=== PATIENT | female | born 1965 | race Caucasian/White ===

== ENCOUNTER 2017-04-28 19:22 | Emergency (ER) | payer OTHER ==
[2017-04-28 19:30] VITALS: BP 127/61; PULSE 78; RESP 20; TEMP 97.8
[2017-04-28] MEDS ORDERED: HYDROmorphone 2 MG/ML 1 ML SYRINGE IM STA (19:52)
--- NOTE | 2017-04-28 20:07 | ED ---
Back Pain HPI - General Chief Complaint: Back Pain/Injury Stated Complaint: Eval Lumbar Pain Time Seen by Provider: 04/28/17 19:35 Source: patient, RN notes reviewed Limitations: no limitations - History of Present Illness Initial Comments: This is a 51-year-old female who presents to the emergency department with chief complaint of mid-back pain. Patient states that she has an extensive medical history and is disabled. She states that she spends most of her time lying in bed. Patient states that she has always had chronic back pain however the pain has been worsening over the past 2 weeks. Patient states that the pain is localized to the right side of her back and it is worse with movement or reaching for objects. She states that she currently takes muscle relaxers but no pain medication. She states that today while at [employer] she twisted and felt a sharp pain in her right back that she says is worse than it has been. She returned home and asked her son to drive her to the emergency department because she couldn't handle the pain anymore. Denies lumbar back pain, saddle paresthesias or loss of bladder or bowel function. Denies fever, chills, chest pain, shortness of breath, abdominal pain, nausea or vomiting, constipation or diarrhea, dysuria or hematuria, numbness or tingling, headache or vision changes. - Related Data Home Medications Medication Instructions Recorded Confirmed Albuterol Sulfate [Ventolin HFA] 2 puff INHALATION DIRECTED PRN 04/30/1409/08 Metoprolol Tartrate [Lopressor] 25 mg PO BID 04/30/14 05/01/14 QUEtiapine FUMARATE [SEROquel] 300 mg PO HS 04/30/14 05/01/14 ALPRAZolam [Xanax] 0.5 mg PO QID PRN 05/01/14 05/01/14 Baclofen [Lioresal] 10 mg PO TID 05/01/14 05/01/14 DULoxetine HCL [Cymbalta] 30 mg PO TID 05/01/14 05/01/14 Dicyclomine [Bentyl] 10 mg PO QID PRN 05/01/14 05/01/14 Omeprazole [PriLOSEC] 40 mg PO AC-BRKFST 05/01/14 05/01/14 Ondansetron HCl [Zofran] 8 mg PO Q8HR PRN 05/01/14 05/01/14 Pregabalin [Lyrica] 100 mg PO BID 05/01/14 05/01/14 Topiramate [Topamax] 50 mg PO BID 05/01/14 05/01/14 traMADol HCL [Ultram] 50 mg PO BID PRN 05/01/14 05/01/14 Allergies Allergy/AdvReac Type Severity Reaction Status Date / Time bupropion HCl Allergy Rash/Hives Verified 04/28/17 19:30 [From Wellbutrin] cephalexin monohydrate Allergy Rash/Hives Verified 04/28/17 19:30 [From Keflex] pseudoephedrine HCl Allergy Rash/Hives Verified 04/28/17 19:30 [From Sudafed] Review of Systems ROS Statement: Those systems with pertinent positive or pertinent negative responses have been documented in the HPI. ROS Other: All systems not noted in ROS Statement are negative. Past Medical History Past Medical History: Fibromyalgia, Hyperlipidemia, Hypertension, Pneumonia, Seizure Disorder, Sleep Apnea/CPAP/BIPAP, Thyroid Disorder Additional Past Medical History / Comment(s): LAST SEIZURE "YEARS AGO", UNABLE TO WEAR CPAP MACHINE, STATES HAS CURRENT FX TAILBONE, CURRENT ALLERGIC REACTION TO CREAM ON FACE History of Any Multi-Drug Resistant Organisms: None Reported Past Surgical History: Back Surgery, Section, Cholecystectomy, Joint Replacement, Orthopedic Surgery, Tubal Ligation Additional Past Surgical History / Comment(s): SPINAL FUSION, LEFT KNEE REPLACEMENT, LEFT ANKLE ORIF WITH PINS, SX FOR DEV SEPTUM, CHIN IMPLANT Additional Past Anesthesia/Blood Transfusion Reaction / Comment(s): AFTER SPINAL FUSION HAD DIFFICULTY WAKING P Past Psychological History: Bipolar, PTSD Smoking Status: Former smoker Past Alcohol Use History: Rare Past Drug Use History: None Reported General Exam - General Exam Comments Initial Comments: General: Awake and alert, well-developed; in no apparent distress. Son is at bedside. HEENT: Head atraumatic, normocephalic. Pupils are equal, round and reactive to light. Extraocular movements intact. Oropharynx moist without erythema or exudate. Neck: Supple. Normal ROM. Back: Normal active range of motion of the thoracic spine. There is tenderness on palpation of right thoracic paraspinal muscles. No bony point vertebral tenderness. Sensation is intact. Pedal pulses are 2+ equal and palpable bilaterally. Cardiovascular: Regular rate and rhythm. No murmurs, rubs or gallops. Chest symmetrical. Respiratory: Lungs clear to auscultation bilaterally. No wheezes, rales or rhonchi. Normal respiratory effort with no use of accessory muscles. Musculoskeletal: Normal ROM, no tenderness bilateral upper and lower extremities. Ambulating normally. Skin: [place], warm and dry without rashes or lesions. Neurological: Alert and oriented x3. CN II-XII grossly intact. Speech is fluent and answers are appropriate. No focal neuro deficits. Psychiatric: Normal mood and affect. No overt signs of depression or anxiety noted. Limitations: no limitations Course Vital Signs 04/28/17 19:27 Temperature 97.8 F Pulse Rate 78 Respiratory 20 Rate Blood Pressure 127/61 O2 Sat by Pulse 97 Oximetry Medical Decision Making - Medical Decision Making This is a 51-year-old female who presents to the emergency department with chief complaint of acute on chronic back pain. Patient states that she has tenderness to the right paraspinal muscles that is positional and worsens with twisting motions and reaching. She has been experiencing progressive worsening of pain over the past 2 weeks. Denies any specific injury or trauma to the area. This case was discussed with attending physician Dr. Bhakta who recommended administering Dilaudid 2 mg IM for pain management. She is in no acute distress at this time. Patient was strongly advised to follow up with her primary care provider on Sunday morning. She is in agreement with plan and voices understanding. All questions were answered. Disposition Clinical Impression: Pain in right paraspinal region Disposition: HOME SELF-CARE Condition: Good Instructions: Lower Back Exercises (ED), Back Pain (ED) Additional Instructions: Please follow up with primary care provider within 1-2 days. Return to emergency department if symptoms should worsen or any concerns arise. Referrals: Marquise Salas MD [Primary Care Provider] - 1-2 days Time of Disposition: 20:13
== END 2017-04-28 20:47 | disposition home or self-care (01) ==
LOC: EC 19:22
DX: M54.9 Dorsalgia, unspecified (principal); G89.29 Other chronic pain; M79.7 Fibromyalgia; I10 Essential (primary) hypertension; F31.9 Bipolar disorder, unspecified; F43.10 Post-traumatic stress disorder, unspecified; G47.30 Sleep apnea, unspecified; Z98.890 Other specified postprocedural states; Z86.69 Personal history of other diseases of the nervous system and sense organs; Z87.891 Personal history of nicotine dependence; Z79.899 Other long term (current) drug therapy; Z88.8 Allergy status to other drugs, medicaments and biological substances; Z88.1 Allergy status to other antibiotic agents
CPT/HCPCS: 99283; 96372; J1170

== ENCOUNTER → 2018-03-12 | Outpatient (CLI) | payer OTHER ==
[2018-03-12 08:39] LABS: Basophils % (A) 1 %; Eosinophils # (A) 0.1 k/uL (0-0.7); Eosinophils % (A) 2 %; HCT 41.4 % (34.0-46.0); HGB 13.2 gm/dL (11.4-16.0); Hypochromasia Slight; Lymphocytes % (A) 32 %; MCH 27.9 pg (25.0-35.0); MCHC 31.9 g/dL (31.0-37.0); MCV 87.5 fL (80.0-100.0); Mean Platelet Volume 7.4; Monocytes # (A) 0.3 k/uL (0-1.0); Monocytes % (A) 5 %; Neutrophils # (A) 3.7 k/uL (1.3-7.7); Neutrophils % (A) 60 %; Platelet Count 204 k/uL (150-450); RBC 4.72 m/uL (3.80-5.40); RDW 13.7 % (11.5-15.5); WBC 6.1 k/uL (3.8-10.6)
== END | disposition home or self-care (01) ==
LOC: LABPAT 07:44
PROVIDERS: ATTEND Obstetrics & Gynecology
DX: Z01.818 Encounter for other preprocedural examination (principal); Z01.812 Encounter for preprocedural laboratory examination; I10 Essential (primary) hypertension; N92.0 Excessive and frequent menstruation with regular cycle; N94.6 Dysmenorrhea, unspecified; D64.9 Anemia, unspecified
CPT/HCPCS: 36415; 85025; 93005

== ENCOUNTER 2018-03-19 07:41 | Day surgery (SDC) | payer OTHER ==
[2018-03-13 10:33] VITALS: BMI 47.4
[~2018-03-19 07:41] MED LIST: HYDROmorphone 0.5 MG/0.5 ML SYRINGE IVP PRN; LACTATED RINGERS 1,000 ML IV SCH; LIDOCAINE 1% 20 ML VIAL (10MG/ML) FOR IV START INTRADERMA PRN; Pre Op ABX Message 1 EACH MISC MISCELLANE ONE
[2018-03-19] MEDS ORDERED: DEXAMETHASONE SOD PHOSPHATE 10 MG/ML 1 ML VIAL IV ONE (08:36)
[2018-03-19] MEDS ORDERED: ONDANSETRON 4 MG/2 ML VIAL IVP ONE (08:38)
[2018-03-19] MEDS ORDERED: MIDAZOLAM 2 MG/2 ML VIAL ONE (08:55)
[2018-03-19] MEDS ORDERED: LIDOCAINE 1% INJ 10MG/ML (20 ML MDV) ONE (08:55)
[2018-03-19] MEDS ORDERED: KETOROLAC 30 MG/ML 1 ML VIAL ONE (08:55)
[2018-03-19] MEDS ORDERED: SUCCINYLCHOLINE CHLORIDE VIAL 200 MG/10 ML VIAL IV ONE (08:55)
[2018-03-19] MEDS ORDERED: fentaNYL (PF) 50 MCG/ML 2 ML AMP ONE (08:55)
[2018-03-19] MEDS ORDERED: PROPOFOL 10 MG/ML 20 ML VIAL IV ONE (08:55)
--- NOTE | 2018-03-19 09:22 | P.OP ---
Date of Procedure: 03/19/18 Preoperative Diagnosis: Menorrhagia, dysmenorrhea, anemia, morbid obesity Postoperative Diagnosis: Same Procedure(s) Performed: Hysteroscopy, NovaSure endometrial ablation Anesthesia: DAVID Surgeon: Ro Meraz Estimated Blood Loss (ml): 5 IV fluids (ml): 500 Urine output (ml): 75 Pathology: none sent Condition: stable Disposition: PACU Description of Procedure: Patient is brought to the operating suite where a general anesthetic is administered without difficulty. She's placed in the dorsal lithotomy position. The appropriate timeout is performed to assure proper patient and procedural identification. Urine hCG is negative. Cervix vagina and perineal bodies are all prepped and draped in usual sterile fashion. The bladder is drained for approximately 75 mL of clear yellow urine. Weighted speculum was placed into the vagina and the anterior lip of the cervix is grasped with an Allis clamp. Uterus sounds to a depth of 10.5 cm in the anteverted position. The cervix is gently and systematically dilated using Hanks dilators. Hysteroscope was placed and the cavity is distended with sterile saline. Inspection of the cavity reveals a fair amount of proliferative appearing tissue, no obvious polyps fibroids or defects. Hysteroscope was removed. The NovaSure wand is then placed and seated properly. Uterine length of 6.5 cm, width of 4.1 cm is calibrated. Machine is properly enabled. For 46 seconds and a power of 147 W the procedure is carried out. When it is completed the wand is reduced and removed. Hysteroscope was once again placed and the cavity is noted to be uniformly blanched. All sponge needle and enhancement counts are correct at the end of this procedure. Patient is given Toradol prior to leaving the operative suite. Vital signs are stable including a blood pressure 113/41, pulse 75, 98% O2 saturation. Patient will follow-up with me in the office in 2 weeks.
[2018-03-19 09:36] VITALS: TEMP 97.7
[2018-03-19] MEDS ORDERED: LACTATED RINGERS 1,000 ML IV ONE (10:13)
[2018-03-19 10:23] VITALS: RESP 16
[2018-03-19] MEDS ORDERED: IBUPROFEN 200 MG TAB PO ONE (10:45)
[2018-03-19 11:47] VITALS: BP 94/62; PULSE 73
== END 2018-03-19 12:09 | disposition home or self-care (01) ==
LOC: OR 07:41
PROVIDERS: ATTEND Obstetrics & Gynecology
DX: N92.0 Excessive and frequent menstruation with regular cycle (principal); N94.6 Dysmenorrhea, unspecified; D64.9 Anemia, unspecified; I10 Essential (primary) hypertension; E78.5 Hyperlipidemia, unspecified; J44.9 Chronic obstructive pulmonary disease, unspecified; G47.33 Obstructive sleep apnea (adult) (pediatric); Z87.891 Personal history of nicotine dependence; M79.7 Fibromyalgia; F39 Unspecified mood [affective] disorder; R56.9 Unspecified convulsions; K58.9 Irritable bowel syndrome, unspecified; K21.9 Gastro-esophageal reflux disease without esophagitis; E66.01 Morbid (severe) obesity due to excess calories; Z68.42 Body mass index [BMI] 45.0-49.9, adult; Z79.890 Hormone replacement therapy; Z79.51 Long term (current) use of inhaled steroids; Z79.899 Other long term (current) drug therapy; Z88.1 Allergy status to other antibiotic agents; Z88.8 Allergy status to other drugs, medicaments and biological substances
CPT/HCPCS: 58563; 81025; J2250; J0330; J1100; J2405; J2001; J3010; J1885; J2704

== ENCOUNTER → 2019-02-19 | Outpatient (CLI) | payer OTHER ==
[2019-02-19 11:41] VITALS: BP 139/78; PULSE 88; RESP 16
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
== END | disposition home or self-care (01) ==
LOC: PNWHC3 11:29
PROVIDERS: ATTEND Anesthesiology
DX: G89.4 Chronic pain syndrome (principal); M51.36 Other intervertebral disc degeneration, lumbar region; M79.7 Fibromyalgia; M47.816 Spondylosis without myelopathy or radiculopathy, lumbar region; Z87.891 Personal history of nicotine dependence; Z79.899 Other long term (current) drug therapy; Z79.891 Long term (current) use of opiate analgesic; Z79.52 Long term (current) use of systemic steroids
CPT/HCPCS: 99211

== ENCOUNTER 2019-03-10 07:01 | Day surgery (SDC) | payer OTHER ==
[2019-03-05 17:48] VITALS: BMI 62.2
[~2019-03-10 07:01] MED LIST changes: -HYDROmorphone 0.5 MG/0.5 ML SYRINGE IVP PRN; -LIDOCAINE 1% 20 ML VIAL (10MG/ML) FOR IV START INTRADERMA PRN; -Pre Op ABX Message 1 EACH MISC MISCELLANE ONE
[2019-03-10 07:23] VITALS: TEMP 98.5
[2019-03-10] MEDS ORDERED: LIDOCAINE 1% 20 ML VIAL (10MG/ML) FOR IV START INTRADERMA ONE (07:26)
--- NOTE | 2019-03-10 08:28 | P.PCN ---
Date of Procedure: 03/10/19 Procedure(s) Performed: PREOPERATIVE DIAGNOSIS : 1- Lumbar spondylosis with Facet Arthropathy without myelopathy . 2- Lumber degenerative disc disease POSTOPERATIVE DIAGNOSIS: 1- Lumbar spondylosis with Facet Arthropathy without myelopathy . 2- Lumber degenerative disc disease PROCEDURE: Diagnostic bilateral L3 , L4 , and L5 medial branch block under fluoroscopy guidance(fluoroscopy images available in the radiology Department ) ( to Block the facet joint at L4 -5 and L5-S1 ) ANESTHESIA: Local with Ropivacain 0.5 % 6 ml , moderate sedation with intravenous Versed 2 mg and Fentanyl 50 mcg. EBL: Minimal COMPLICATION: None. IV FLUIDS: 100 mL of normal saline. PROCEDURE INDICATION: Chronic low back pain secondary to Facet arthropathy unresponsive to conservative treatment. PROCEDURE DESCRIPTION: the patient was seen and identified in the preop holding area , risks and benefits and possible complications of the procedure and alternative were discussed with the patient, and the patient agreed to proceed with the procedure and signed the consent IV was started and vital signs monitored during the procedure and fluoroscopy was used to maximize the benefit and accuracy of the needle placement, and sedation was given to decrease patient anxiety, patient was taken to the procedure room and placed in prone position vital signs monitored in the back prepped with chlorhexidine X3 then under strict sterile technique using a right oblique fluoroscopy ,the junction of the transverse process and the superior articulating process of the right L3 , L4 , and L5 vertebra which corresponding to the fluoroscopy image of the eye of the Miles dog on the block side for the medial branches and subsequently , after local infiltration of skin and subcu tissuies with Ropivacaine 0.5 % , one mL at each level ,then 22-gauge 5 inches long Quincke-type needles , 3 needle was used , each one of them placed at the junction of the base of the transverse process and the superior articular process at the appropriate level, and the needle was advanced until the periosteum contacted, needle placement confirmed with AP oblique and lateral view and after appropriate needle placement confirmed, and after negative aspiration for heme and CSF and there was no paresthesia 1-1/2 mL of Ropivacaine 0.5% mixed with 20 mg Depo-Medrol , then half mL injected at each level after negative aspiration the needle subsequently removed and the same procedure repeated for the left side at left side at L3, L4 and L5 levels. At the end of the procedure and the needles removed and a bandage applied after the skin was cleaned the cleaning solution patient taken to recovery room in stable condition and monitors in the recovery room for 20-30 minutes and discharged home in stable condition after discharge criteria met and patient will follow up with the pain clinic in 2-4 weeks
[2019-03-10 08:37] VITALS: RESP 16
--- NOTE | 2019-03-10 08:56 | FL ---
Fluoroscopy INDICATION: Pain FINDINGS: Fluoroscopy time: 10 seconds. Images obtained: 4. IMPRESSIONS: 1. Documentation of fluoroscopy.
[2019-03-10 08:57] VITALS: BP 98/63; PULSE 70
[2019-03-10] MEDS ORDERED: IV FLUID CONTINUATION 1,000 ML IV ONE (08:59)
== END 2019-03-10 09:06 | disposition home or self-care (01) ==
LOC: ORPAIN 07:01
PROVIDERS: ATTEND Specialist
DX: G89.29 Other chronic pain (principal); M47.816 Spondylosis without myelopathy or radiculopathy, lumbar region; M51.36 Other intervertebral disc degeneration, lumbar region; Z88.1 Allergy status to other antibiotic agents; Z88.8 Allergy status to other drugs, medicaments and biological substances
CPT/HCPCS: 64493; 64494; J2250; J1030; J3010; 99152

== ENCOUNTER 2019-03-24 07:02 | Day surgery (SDC) | payer OTHER ==
[2019-03-20 10:08] VITALS: BMI 45.2
[2019-03-24 07:23] VITALS: TEMP 97.3
[2019-03-24] MEDS ORDERED: LIDOCAINE 1% 20 ML VIAL (10MG/ML) FOR IV START INTRADERMA ONE (07:27)
[2019-03-24] MEDS ORDERED: IV FLUID CONTINUATION 1,000 ML IV ONE (08:14)
--- NOTE | 2019-03-24 08:16 | P.PCN ---
Date of Procedure: 03/24/19 Procedure(s) Performed: PREOPERATIVE DIAGNOSIS : 1- Lumbar spondylosis with Facet Arthropathy without myelopathy . 2- Lumber degenerative disc disease POSTOPERATIVE DIAGNOSIS: 1- Lumbar spondylosis with Facet Arthropathy without myelopathy . 2- Lumber degenerative disc disease PROCEDURE: Diagnostic bilateral L3 , L4 , and L5 medial branch block under fluoroscopy guidance(fluoroscopy images available in the radiology Department ) ( to Block the facet joint at L4 -5 and L5-S1 ) ANESTHESIA: Local with Ropivacain 0.5 % 6 ml , moderate sedation with intravenous Versed 2 mg and Fentanyl 50 mcg. EBL: Minimal COMPLICATION: None. IV FLUIDS: 100 mL of normal saline. PROCEDURE INDICATION: Chronic low back pain secondary to Facet arthropathy unresponsive to conservative treatment. PROCEDURE DESCRIPTION: the patient was seen and identified in the preop holding area , risks and benefits and possible complications of the procedure and alternative were discussed with the patient, and the patient agreed to proceed with the procedure and signed the consent IV was started and vital signs monitored during the procedure and fluoroscopy was used to maximize the benefit and accuracy of the needle placement, and sedation was given to decrease patient anxiety, patient was taken to the procedure room and placed in prone position vital signs monitored in the back prepped with chlorhexidine X3 then under s trict sterile technique using a right oblique fluoroscopy ,the junction of the transverse process and the superior articulating process of the right L3 , L4 , and L5 vertebra which corresponding to the fluoroscopy image of the eye of the Miles dog on the block side for the medial branches and subsequently , after local infiltration of skin and subcu tissuies with Ropivacaine 0.5 % , one mL at each level ,then 22-gauge 5 inches long Quincke-type needles , 3 needle was used , each one of them placed at the junction of the base of the transverse process and the superior articular process at the appropriate level, and the needle was advanced until the periosteum contacted, needle placement confirmed with AP oblique and lateral view and after appropriate needle placement confirmed, and after negative aspiration for heme and CSF and there was no paresthesia 1-1/2 mL of Ropivacaine 0.5% mixed with 20 mg Depo-Medrol , then half mL injected at each level after negative aspiration the needle subsequently removed and the same procedure repeated for the left side at left side at L3, L4 and L5 levels. At the end of the procedure and the needles removed and a bandage applied after the skin was cleaned the cleaning solution patient taken to recovery room in stable condition and monitors in the recovery room for 20-30 minutes and discharged home in stable condition after discharge criteria met and patient will follow up with the pain clinic in 2-4 weeks
[2019-03-24 08:17] VITALS: RESP 18
--- NOTE | 2019-03-24 08:26 | FL ---
Fluoroscopy INDICATION: Pain FINDINGS: Fluoroscopy time: 12 seconds. Images obtained: 4. IMPRESSIONS: 1. Documentation of fluoroscopy.
[2019-03-24 08:36] VITALS: BP 121/67; PULSE 69
== END 2019-03-24 08:53 | disposition home or self-care (01) ==
LOC: ORPAIN 07:02
PROVIDERS: ATTEND Specialist
DX: G89.29 Other chronic pain (principal); M47.816 Spondylosis without myelopathy or radiculopathy, lumbar region; M51.36 Other intervertebral disc degeneration, lumbar region; R56.9 Unspecified convulsions; Z88.1 Allergy status to other antibiotic agents; Z88.8 Allergy status to other drugs, medicaments and biological substances
CPT/HCPCS: 64493; 64494; J2250; J1030; J3010; 99152

== ENCOUNTER 2019-03-28 08:24 | Day surgery (SDC) | payer OTHER ==
[2019-03-20 10:13] VITALS: BMI 45.2
[2019-03-28 09:04] VITALS: TEMP 97.1
[2019-03-28] MEDS ORDERED: LIDOCAINE 1% 20 ML VIAL (10MG/ML) FOR IV START INTRADERMA ONE (09:13)
[2019-03-28] MEDS ORDERED: MIDAZOLAM 2 MG/2 ML VIAL ONE (09:30)
[2019-03-28] MEDS ORDERED: PROPOFOL 10 MG/ML 20 ML VIAL IV ONE (09:30)
[2019-03-28] MEDS ORDERED: fentaNYL (PF) 50 MCG/ML 2 ML AMP ONE (09:30)
--- NOTE | 2019-03-28 09:50 | P.PCN ---
Date of Procedure: 03/28/19 Procedure(s) Performed: Brief history: Patient is a pleasant 53-year-old white female, scheduled for an elective upper endoscopy as well as colonoscopy as a part of evaluation of GERD and screening for colorectal neoplasia. She has family history of colon cancer. Procedure performed: Esophagogastroduodenoscopy Colonoscopy Preoperative diagnosis: GERD Screening for colon cancer Anesthesia: MAC Procedure: After informed consent was obtained from the patient was brought into the endoscopy unit and IV sedation was administered by anesthesia under continuous monitoring. Initially upper endoscopy was done. The Olympus GF 160 video endoscope was inserted inserted into the mouth and esophagus intubated without any difficulty and was gradually advanced into the stomach and duodenum and carefully examined. The bulb and second part of the duodenum appeared normal. The scope was then withdrawn into the stomach adequately insufflated with air and upon careful examination the antrum had mild diffuse gastritis and biopsies were done from this area. The body, cardia and fundus appeared normal. The scope was then withdrawn into the esophagus. The GE junction was located at 40 cm to the incisors. It appeared regular with no erythema erosions or ulcerations. Rest of the esophagus appeared normal. Patient tolerated the procedure well. At this time the patient continued to remain sedation. Initial digital rectal examination was normal. Olympus CF 160 video colonoscope was then inserted into the rectum and gradually advanced to the cecum without any difficulty. Careful examination was performed as the scope was gradually being withdrawn. The prep was excellent. The cecum, ascending colon, transverse colon, descending colon, sigmoid colon and rectum appeared normal. Retroflexion was performed in the rectum and no lesions were noted. Patient tolerated the procedure well. Impression: 1. Upper endoscopy revealed mild antral gastritis but no evidence of esophagitis or peptic ulcer 2. Colonoscopy was essentially within normal limits with no evidence of colorectal neoplasia Recommendations: Findings of this examination were discussed with the patient as well as a family. She was advised to follow with the biopsy results. he was advised to have a repeat screening colonoscopy in 5 years from now because of family history of colon cancer.
[2019-03-28 09:59] VITALS: RESP 16
[2019-03-28 10:49] VITALS: BP 118/83; PULSE 73
== END 2019-03-28 10:50 | disposition home or self-care (01) ==
LOC: ORWHC2ENDO 08:24
PROVIDERS: ATTEND Internal Medicine Gastroenterology
DX: Z12.11 Encounter for screening for malignant neoplasm of colon (principal); K29.50 Unspecified chronic gastritis without bleeding; K21.9 Gastro-esophageal reflux disease without esophagitis; Z80.0 Family history of malignant neoplasm of digestive organs; I10 Essential (primary) hypertension; E78.5 Hyperlipidemia, unspecified; G47.33 Obstructive sleep apnea (adult) (pediatric); E07.9 Disorder of thyroid, unspecified; M79.7 Fibromyalgia; Z87.891 Personal history of nicotine dependence; Z79.890 Hormone replacement therapy; Z79.899 Other long term (current) drug therapy; Z88.1 Allergy status to other antibiotic agents; Z88.8 Allergy status to other drugs, medicaments and biological substances
CPT/HCPCS: 43239; 88305; G0105; J2250; J3010; J2704

== ENCOUNTER → 2019-04-17 | Outpatient (CLI) | payer OTHER ==
[2019-04-17 13:32] VITALS: BP 130/85; PULSE 85; RESP 16
--- NOTE | 2019-04-17 14:01 | P.PAINPG ---
Subjective Progress Note Date: 04/17/19 This is a follow-up visit for this 53 years old female with a chronic history of severe low back pain, and upper and mid back pain, recently we have done diagnostic medial branch block lumbar area L3, L4, L5 bilaterally and patient reported that she had excellent pain relief, and her pain in the lumbar area and improve significantly, and she is currently complaining of severe mid and upper back pain which is increased with any activity is constant, interfering with her quality of life, she denies any motor or sensory deficit she denies any fever or night sweats, and there is no change in the bowel movement or urination Objective - Vital Signs Vital signs: Vital Signs Temp Pulse 85 04/17/19 13:26 Resp 16 04/17/19 13:26 BP 130/85 04/17/19 13:26 Pulse Ox 94 L 04/17/19 13:26 - Exam Physical Examinations : -Constitutiona : Cooperative , not in acute distress . -HEENT : nech : supple , no Lymphadenopathy , normal thyroid size . : eyes : no ptosis , no icterus, no photophobia . : ENT : normal of hearing , normal oropharynx , no Thrush . - Respiratory : Chest clear to auscultations Bilaterally , no wheezing , no Rhonchi . - Cardiovascula : regular rate and rhythem , S1 , S2 , no S3 , no S4. - Gastrointestina : abdomen soft no tenderness , bowel sounds , no organomegally . - Genitourinary : Defferred . - neurologic : Cranial nerve II to XII intact , no focal neurological deffecit . -psychatric : alert , oriented X 3 , appropriate affect , intact judgment and insight . -Lymphatic : no Lymphadenopathy . - musculoskeltal : Cervical Spine motor stregnth in the deltoid and biceps, normal right side , normal Left side motor stregnth biceps and the wrist extensors normal right side ,normal left side . motor stregnth in the triceps muscle . normal Right side , normal Left side Thoracic spine= Thoracic facet loading test positive from T2 to T89 Generalized tenderness over the thoracic paravertebral muscles Lumber spine moter stegnth lower extremities ,thigh and legs 5/5 Right side , 5/5 Left side deep tendon reflexes : normal Knee Jerk , normal ankle Jerk lumber facet Loading Test =positive Right , posiutive Left Assessment and Plan Plan: Assessment and plan= 1-lumbar spondylosis with lumbar facet arthropathy Patient had positive results after diagnostic medial branch block lumbar area at L3, L4, L5 , and she will be good candidate to have RFA of the medial branch lumbar area, but patient reported that currently she has no pain, and on her feet can be done in the future if she has pain. 2-upper and mid back pain most likely secondary to thoracic spondylosis versus thoracic degenerative disc disease We'll order MRI of the thoracic spine without contrast, and she will be seen in the clinic after we have the report Time with Patient: Less than 30 PQRS Measure Charge Sheet Measure #130: Documentation of Current Meds in Medical Chart: Patient's medications documented in chart Measure #226: Tobacco Use: Screen & Cessation Intervention: Pt not a tobacco user Measure #111: Pneumonia Vaccination: Pneumococcal vaccine administered or previously received Measure #47: Advance Care Plan: Advance care planning discussed & documented, pt chose/unable to give Measure #412: Opioid Treatment Agreement: No documentation of signed opioid treatment agreement Measure #408: Opioid Therapy Follow-up Evaluation: Patient had NO f/u eval minimum every 3 months during opioid therapy Measure #317: Preventitive Care & Scrn High Bld Press & F/U: Normal blood pressure, f/u not required Measure #128: Body Mass Index (BMI) Screening & Follow-up: BMI documented ABOVE normal parameters - f/u documented Measure #131: Pain Assessment & Follow-up: Pain positive & plan documented, Follow-up scheduled Measure #431: Unhealthy Alcohol Use Preventative Care & Scrn: Patient not identified as an unhealthy alcohol user PQRS Narrative: Smoking Status Former smoker Blood Pressure 130/85 Pain Intensity [Bilateral 0 Lower Back] Pain Intensity [Upper Back] 6 Scale Used Numeric (1 - 10) Hx Alcohol Use (MH) Yes: RARE Home Medications: Ambulatory Orders Metoprolol Tartrate [Lopressor] 25 mg PO BID 04/30/14 QUEtiapine FUMARATE [SEROquel] 300 mg PO HS 04/30/14 ALPRAZolam [Xanax] 0.5 mg PO QID PRN 05/01/14 Dicyclomine [Bentyl] 10 mg PO QID PRN 05/01/14 Albuterol Inhaler [Ventolin Hfa Inhaler] 1 puff INHALATION DIRECTED PRN 05/09/17 Ferrous Sulfate [Feosol] 325 mg PO DAILY 05/09/17 Levothyroxine Sodium 75 mcg PO DAILY 05/09/17 Loratadine [Claritin] 10 mg PO DAILY 05/09/17 Atorvastatin [Lipitor] 40 mg PO DAILY 03/13/18 DULoxetine HCL [Cymbalta] 30 mg PO TID 03/13/18 Meclizine [Antivert] 25 mg PO TID 03/13/18 Topiramate [Topamax] 50 mg PO BID 02/13/19 lamoTRIgine [LaMICtal] 200 mg PO DAILY 02/13/19 Baclofen [Lioresal] 10 mg PO TID 03/05/19 Fluticasone Nasal [place] [Flonase Nasal [place]] 1 spray EA NOSTRIL DAILY PRN 03/05/19 Pantoprazole Sodium [Protonix] 40 mg PO DAILY 03/05/19 Controlled Substance Measures - Controlled Substance Measures Is patient prescribed a controlled substance at discharge?: No
== END | disposition home or self-care (01) ==
LOC: PNWHC3 12:59
PROVIDERS: ATTEND Specialist
DX: G89.29 Other chronic pain (principal); M47.816 Spondylosis without myelopathy or radiculopathy, lumbar region; M46.96 Unspecified inflammatory spondylopathy, lumbar region; Z79.891 Long term (current) use of opiate analgesic; Z87.891 Personal history of nicotine dependence; Z79.890 Hormone replacement therapy; Z79.899 Other long term (current) drug therapy
CPT/HCPCS: 99211

== ENCOUNTER → 2019-07-30 | Outpatient (CLI) | payer OTHER ==
[2019-07-30 13:52] VITALS: BP 119/75; PULSE 86; RESP 18
--- NOTE | 2019-07-30 14:38 | P.PAINPG ---
Subjective Progress Note Date: 07/30/19 Edna is a 53-year-old female presents today for follow-up. She has a long history of lower back pain as well as mid back pain. She reports that her pain is consistent has not changed in the recent month. She continues to have pain across the middle of her back and in her lower back. She has no evidence of numbness or tingling radiating down her lower extremities. She has tenderness throughout the lumbar spine and multiple areas throughout her body which she attributes to fibromyalgia. On today's visit she reports a VAS of 6 out of 10 in the low back. She reports excellent relief with lumbar medial branch blocks performed previously. She's not had a second one. We had ordered an MRI of the lumbar spine as well as a thoracic spine. The insurance company has not authorized that B because she does not have any red flag symptoms or any new findings on exam the last documented note. At this point she denies any bowel or bladder incontinence, denies any lower extremity weakness, denies any red flag symptoms of stenosis or spinal compression. Objective - Vital Signs Vital signs: Vital Signs Temp Pulse 86 07/30/19 13:35 Resp 18 07/30/19 13:35 BP 119/75 07/30/19 13:35 Pulse Ox 94 L 07/30/19 13:35 - Exam General: Awake and alert oriented 3 no distress Respiratory exam: No audible wheezing no accessory muscle usage Cardiovascular exam: regular rate, palpable bilateral pulses, no lower extremity edema Abdominal exam: No distention nontender to palpation Cervical spine: Normal alignment, Spurling's negative, facet loading negative, Bad Cloth Checker strength is 5/5, ty negative Lumbar spine: Loss of lumbar lordosis, normal alignment, tender to palpation over bilateral paraspinal muscles, facet loading is positive bilaterally. Straight leg raise is negative. Limited range of motion due to pain with flexion, extension and side bending. Sacroiliac joints: Nontender to palpation, REGINA is negative, [place] negative Neuro exam: Normal sensation in bilateral upper extremities, deep tendon reflexes are 2+ bilateral upper extremities. Normal sensation in bilateral lower extremities. Deep tendon reflexes are 1+ in lower extremities Psych exam: Cooperative, appropriate mood Assessment and Plan Assessment: #1 lumbar spondylosis without myelopathy #2 thoracic spondylosis without myelopathy #3 obesity #4 fibromyalgia Plan: At this time we will discuss the lumbar pain as well as thoracic pain. The patient feels that her low back pain is still bothering her significantly, she is always had pain over the thoracic spine which is unchanged. She has tenderness to palpation even with light touch. We discussed that this is unlikely to be caused by the thoracic spine pain. She would like to move forward with a second lumbar medial branch block and potentially radiofrequency ablation. We discussed this in detail and schedule the patient for second lumbar medial branch block. I've advised her that if the insurance company will approve her MRI the thoracic spine and she wants to have it done she can certainly have it done Time with Patient: Less than 30 PQRS Measure Charge Sheet Measure #130: Documentation of Current Meds in Medical Chart: Patient's medications documented in chart Measure #226: Tobacco Use: Screen & Cessation Intervention: Pt screened for tobacco use AND intervention given Measure #111: Pneumonia Vaccination: Pneumococcal vaccine administered or previously received Measure #47: Advance Care Plan: Advance care planning discussed & documented, plan or surrogate given Measure #412: Opioid Treatment Agreement: No documentation of signed opioid treatment agreement Measure #317: Preventitive Care & Scrn High Bld Press & F/U: Normal blood pressure, f/u not required Measure #128: Body Mass Index (BMI) Screening & Follow-up: BMI documented ABOVE normal parameters - f/u documented Measure #131: Pain Assessment & Follow-up: Pain positive & plan documented Measure #431: Unhealthy Alcohol Use Preventative Care & Scrn: Patient not identified as an unhealthy alcohol user PQRS Narrative: Smoking Status Former smoker Blood Pressure 119/75 Pain Intensity [Back] 7 Scale Used Numeric (1 - 10) Hx Alcohol Use (MH) Yes: RARE Home Medications: Ambulatory Orders Metoprolol Tartrate [Lopressor] 25 mg PO BID 04/30/14 QUEtiapine FUMARATE [SEROquel] 300 mg PO HS 04/30/14 ALPRAZolam [Xanax] 0.5 mg PO QID PRN 05/01/14 Dicyclomine [Bentyl] 10 mg PO QID PRN 05/01/14 Albuterol Inhaler [Ventolin Hfa Inhaler] 1 puff INHALATION DIRECTED PRN 05/09/17 Ferrous Sulfate [Feosol] 325 mg PO DAILY 05/09/17 Levothyroxine Sodium 75 mcg PO DAILY 05/09/17 Loratadine [Claritin] 10 mg PO DAILY 05/09/17 Atorvastatin [Lipitor] 40 mg PO DAILY 03/13/18 DULoxetine HCL [Cymbalta] 30 mg PO TID 03/13/18 Meclizine [Antivert] 12.5 mg PO TID 03/13/18 Topiramate [Topamax] 50 mg PO BID 02/13/19 Baclofen [Lioresal] 10 mg PO TID 03/05/19 Fluticasone Nasal [place] [Flonase Nasal [place]] 1 spray EA NOSTRIL DAILY PRN 03/05/19 Pantoprazole Sodium [Protonix] 40 mg PO DAILY 03/05/19 Cholecalciferol [Vitamin D3 (25 Mcg = 1000 Iu)] 5,000 unit PO DAILY 07/24/19 Controlled Substance Measures - Controlled Substance Measures Is patient prescribed a controlled substance at discharge?: No
== END | disposition home or self-care (01) ==
LOC: PNWHC3 13:28
PROVIDERS: ATTEND Hospitalist
DX: M47.814 Spondylosis without myelopathy or radiculopathy, thoracic region (principal); M47.816 Spondylosis without myelopathy or radiculopathy, lumbar region; E66.9 Obesity, unspecified; M79.7 Fibromyalgia; Z68.41 Body mass index [BMI] 40.0-44.9, adult; Z87.891 Personal history of nicotine dependence; Z79.890 Hormone replacement therapy; Z79.51 Long term (current) use of inhaled steroids; Z79.899 Other long term (current) drug therapy
CPT/HCPCS: 99211

== ENCOUNTER → 2019-08-11 | Day surgery (SDC) | payer OTHER ==
[2019-08-08 09:57] VITALS: BMI 44.1
[~2019-08-11] MED LIST changes: +BUPIVACAINE (PF) 0.5% 30 ML VIAL ONE; +IV FLUID CONTINUATION 400 ML IV ONE; +LIDOCAINE 1% (10MG/ML) FOR IV START INTRADERMA PRN; +MIDAZOLAM 2 MG/2 ML VIAL ONE; +TRIAMCINOLONE ACETONIDE 40 MG/ML 1 ML VIAL ONE; +fentaNYL (PF) 50 MCG/ML 2 ML AMP ONE
[2019-08-11 09:08] VITALS: RESP 16; TEMP 97.8
--- NOTE | 2019-08-11 10:54 | P.PCN ---
Date of Procedure: 08/11/19 Surgeon: Larisa Ortega Pathology: none sent Condition: stable Disposition: PACU Description of Procedure: Lumbar MBB Radiofrequency PREOPERATIVE DIAGNOSIS: Lumbar spondylosis without myelopathy, morbid obesity POSTOPERATIVE DIAGNOSIS: Lumbar spondylosis without myelopathy,morbid obesity PROCEDURES : Right Radiofrequency thermocoagulation L3-L4, L4-L5, and L5-S1 medial branch, with fluoroscopic guidance ANESTHESIA: IV moderate conscious sedation with versed and fentanyl and local infiltration with lidocaine 1% 5 ml EBL: Minimal PROCEDURE INDICATION: The patient with low back pain secondary to lumbar facet arthropathy who had more than 50% relief of her pain with previous diagnostic lumbar medial branch block with bupivacaine. PROCEDURE DESCRIPTION / TECHNIQUE: The patient was seen and identified in the preoperative area. Risks, benefits, complications, including but not limited to risk of infection ,bleeding , allergic reactions to the medications and no com plete pain relief , and alternatives were discussed with the patient, the patient agreed to proceed with the procedure and signed the consent. IV was started. Vital signs remained stable throughout the procedure. Patient was taken to the OR and time out was completed. The patient was placed in the prone position on the procedure table. The lumber area was prepped and draped in the usual sterile fashion. . Vital signs were closely monitored during the procedure .IV sedation was used during the procedure to decrease patients anxiety. The target points were identified as follows: For the L5-S1 level which corresponds to the dorsal ramus of L5 the target point was at the superior medial aspect of the sacral ala on the right side of the spine on the AP view of fluoroscopy and for the L2, L3, and L4 medial branches the target points were at the connection between the transverse process and the superior articular process of L3, L4, and L5 vertebra respectively on the right oblique view of fluoroscopy. skin was marked, and localized with 1% lidocaineat these points. Subsequently, an 18 [id number] radiofrequency needles with a 10-mm curved a ctive tips were advanced guided by fluoroscopy to each of the target points mentioned above in a superior medial direction to get the active tips as parallel as possible to the medial branches tracks. AP, oblique, and lateral views of fluoroscopy were used to verify needle tips position. Each level then underwent motor testing at 2.5 Hz and 0 to 3 volt with local stimulation, but no radicular symptoms down the legs. Thereafter radiofrequency thermocoagulation at 80 degrees celsius for 90 seconds after injecting 1 ml of PF Marcaine 0.5%(3 mls) with 40 mg of Kenalog. At the end of the procedure, the skin was cleansed and bandages were applied. COMPLICATIONS: No acute complications. DISPOSITION / PLANS: The patient was placed in a supine position and transferred to the recovery area in a stable condition for observation and was discharged from the recovery room after meeting discharge criteria. Home discharge instructions given to the patient by the staff. The patient was reexamined prior to discharge. The patient will schedule a follow up in the clinic in 2-4 weeks.
[2019-08-11 11:00] VITALS: PULSE 76
[2019-08-11 11:19] VITALS: BP 95/62
--- NOTE | 2019-08-11 12:25 | FL ---
EXAMINATION TYPE: FL guided pain mgmt statistic DATE OF EXAM: 08/11/2019 HISTORY: Fluoroscopy time 20 seconds of fluoroscopy provided. IMPRESSION: 1. Fluoroscopy time.
== END ==
LOC: ORPAIN 08:48
PROVIDERS: ATTEND Anesthesiology
DX: M47.816 Spondylosis without myelopathy or radiculopathy, lumbar region (principal); I10 Essential (primary) hypertension; E66.01 Morbid (severe) obesity due to excess calories; Z98.1 Arthrodesis status; Z88.1 Allergy status to other antibiotic agents; Z88.8 Allergy status to other drugs, medicaments and biological substances; Z68.42 Body mass index [BMI] 45.0-49.9, adult
CPT/HCPCS: 64635; 64636 ×2; J2250; J3301; J3010; 99152

== ENCOUNTER → 2019-10-24 | Outpatient (CLI) | payer OTHER | END | disposition home or self-care (01) | LOC: LABWHC1 14:48 | PROVIDERS: ATTEND Family Medicine | DX: Z11.59 Encounter for screening for other viral diseases (principal) ==

== ENCOUNTER → 2019-10-28 | Day surgery (SDC) | payer OTHER ==
[2019-10-27 14:06] VITALS: BMI 44.9
[~2019-10-28] MED LIST changes: +IV FLUID CONTINUATION 1,000 ML IV ONE; -IV FLUID CONTINUATION 400 ML IV ONE; +LIDOCAINE 1% (10MG/ML) FOR IV START INTRADERMA ONE; -LIDOCAINE 1% (10MG/ML) FOR IV START INTRADERMA PRN; +LIDOCAINE 1% INJ 10MG/ML (20 ML MDV) ONE; -TRIAMCINOLONE ACETONIDE 40 MG/ML 1 ML VIAL ONE
[2019-10-28 06:54] VITALS: RESP 16; TEMP 97.2
--- NOTE | 2019-10-28 07:39 | P.PCN ---
Date of Procedure: 10/28/19 Description of Procedure: PREOPERATIVE DIAGNOSIS: Lumbar Facet Arthropathy without myelopathy POSTOPERATIVE DIAGNOSIS: Same PROCEDURES: LEFT Radiofrequency thermocoagulation of L3-4, L4-5, L5-S1 medial branches, with fluoroscopic guidance ANESTHESIA: IV sedation with versed and fentanyl and local infiltration with lidocaine 1% 10 ml Imaging: Fluoroscopy was used, images where saved to the medical record PROCEDURE INDICATION: The patient with low back pain secondary to lumbar facet arthropathy who had more than 50% relief of pain with previous diagnostic lumbar medial branch block with local anesthetic. PROCEDURE DESCRIPTION / TECHNIQUE: The patient was seen and identified in the preoperative area. Risks, benefits, complications, including but not limited to risk of infection, bleeding, allergic reactions to the medications and no complete pain relief, and alternatives were discussed with the patient, the patient agreed to proceed with the procedure and signed the consent. IV was started. Vital signs remained stable throughout the procedure. Patient was taken to the OR and time out was completed. The patient was placed in the prone position on the procedure table. The lumber area was prepped and draped in the usual sterile fashion. Vital signs were closely monitored during the procedure. IV sedation was used during the procedure to decrease patient anxiety. Using AP and then oblique fluoroscopy, the eye of the Miles dog corresponding to the connection between the superior and transverse articular processes of L4, L5, and sacral Ala were identified, marked, and localized with 1% lidocaine. Subsequently, a 20 guage 150-mm radiofrequency cannula with a 10-mm active tip was advanced guided by fluoroscopy to the junction of the pedicle and transverse process of each identified level. Each site then underwent sensory testing at 50 Hz and 0 to 1 volt and motor testing at 2.5 Hz and 0 to 3 volt with local stimulation, no radicular symptoms sensed by the patient and no obvious motor stimulation noted. Thereafter the tested sites underwent radiofrequency thermocoagulation at 80 degrees celsius for 90 seconds after injecting 1 ml of PF lidocaine 1%. Then after the thermocoagulation was done, 1 ml of the block solution containing ropivaciane 0.5% was injected at the lesioned sites after negative aspiration of CSF and blood and with no paresthesias. Cannulas were retracted. At the end of the procedure, the skin was cleansed and bandages were applied. COMPLICATIONS: No acute complications. DISPOSITION / PLANS: The patient was placed in a supine position and transferred to the recovery area in a stable condition for observation and was discharged from the recovery room after meeting discharge criteria. Home discharge instructions given to the patient by the staff. The patient was reexamined prior to discharge. Patient will follow up as directed.
[2019-10-28 08:08] VITALS: BP 137/71; PULSE 88
--- NOTE | 2019-10-28 08:56 | FL ---
Fluoroscopy INDICATION: Pain FINDINGS: Fluoroscopy time: 7 seconds. Images obtained: 3. IMPRESSIONS: 1. Documentation of fluoroscopy.
== END ==
LOC: ORPAIN 06:31
PROVIDERS: ATTEND Hospitalist
DX: M47.816 Spondylosis without myelopathy or radiculopathy, lumbar region (principal); Z88.1 Allergy status to other antibiotic agents; Z88.8 Allergy status to other drugs, medicaments and biological substances
CPT/HCPCS: 64635; 64636 ×2; J2250; J2001; J3010; 99152

== ENCOUNTER → 2019-11-26 | Outpatient (CLI) | payer OTHER ==
[2019-11-26 11:08] VITALS: BP 133/81; PULSE 91; RESP 18
--- NOTE | 2019-11-26 11:40 | P.PAINPG ---
Subjective Progress Note Date: 11/26/19 Edna is a 54-year-old female presents today for follow-up. She has a long history of lower back pain as well as mid back pain. She has been diagnosed with lumbar and thoracic spondylosis. She underwent lumbar radiofrequency ablation, right side done on 08/11/2019 and left side done on 10/28/2019. She returns today for follow-up. She reports no significant benefit from either procedure. She states that the medial branch blocks done last year provided more relief. Today, her pain is located in the low back, described as sharp and throbbing, radiating to the coccyx region, rated as 7/10. Pain does not radiate to lower extremities. Pain is worse with standing for more than 10 minutes and better with heat, lying down. She is not currently taking any medications for pain as they do not help. She is obese, she was evaluated for bariatric surgery, however her insurance denied this as she was unable to use the required amount of weight. Review of systems is negative for chest pain, shortness of breath, new onset weakness, numbness/tingling, abdominal pain, malaise, fever, night sweats, chills, homicidal or suicidal ideation, or bowel or bladder incontinence. Objective Physical exam: Vitals: Reviewed in EMR GENERAL: Well appearing, in no acute distress, morbidly obese PSYCH: Mood and affect is appropriate. Awake, alert, and oriented SKIN: Skin color, texture, turgor normal, no rashes or lesions HEENT: Normocephalic, atraumatic. EOM intact CV: No pedal edema RESP: Respirations are unlabored, no audible wheezing GI: Abdomen non-distended MUSCULOSKELETAL: Bilateral lower extremity strength is normal and symmetric. No atrophy or tone abnormalities are noted. Lumbar spine: Straight leg raising in the sitting position is negative for radicular pain. Tenderness to palpation over the lumbar spine and paraspinous muscles bilaterally. Positive for pain with facet loading and back extension/rotation. Buttocks: No pain to palpation over the PSIS, sacroiliac joint maneuvers are negative for pain. Extremities: Peripheral joint ROM is full and pain free without obvious instability or laxity in all four extremities. No edema or skin discolorations noted. NEUR: Cranial nerves are grossly intact. No loss of sensation is noted. Assessment and Plan Assessment: #1 lumbar spondylosis without myelopathy #2 thoracic spondylosis without myelopathy #3 morbid obesity #4 fibromyalgia Plan: We had a lengthy discussion regarding the importance of weight loss and diet. I asked her to contact her primary care physician regarding a referral to a dietitian. We discussed the importance of weight loss as it pertains to pain. She expressed understanding. She did not have significant benefit from lumbar radiofrequency ablation. Patient has not had a lumbar MRI done since 2016. We will order a repeat lumbar MRI today. Follow-up: After lumbar MRI completed PQRS Measure Charge Sheet Measure #130: Documentation of Current Meds in Medical Chart: Patient's medications documented in chart Measure #226: Tobacco Use: Screen & Cessation Intervention: Pt screened for tobacco use AND is not a tobacco user Measure #111: Pneumonia Vaccination: Pneumococcal vaccine administered or previously received Measure #47: Advance Care Plan: Advance care planning discussed & documented, patient chose/not able to give Measure #412: Opioid Treatment Agreement: No documentation of signed opioid treatment agreement Measure #317: Preventitive Care & Scrn High Bld Press & F/U: Normal blood pressure, f/u not required Measure #128: Body Mass Index (BMI) Screening & Follow-up: BMI documented ABOVE normal parameters - f/u documented Measure #131: Pain Assessment & Follow-up: Pain positive & plan documented Measure #431: Unhealthy Alcohol Use Preventative Care & Scrn: Patient not identified as an unhealthy alcohol user PQRS Measure Charge Sheet PQRS Narrative: Smoking Status Former smoker Pain Intensity [Lower Back] 7 Scale Used Numeric (1 - 10) Hx Alcohol Use (MH) Yes: RARE Home Medications: Ambulatory Orders Metoprolol Tartrate [Lopressor] 25 mg PO BID 04/30/14 QUEtiapine FUMARATE [SEROquel] 300 mg PO HS 04/30/14 ALPRAZolam [Xanax] 0.5 mg PO QID PRN 05/01/14 Dicyclomine [Bentyl] 10 mg PO QID PRN 05/01/14 Albuterol Inhaler (Mhu) [Ventolin Hfa Inhaler] 1 puff INHALATION DIRECTED PRN 05/09/17 Ferrous Sulfate [Feosol] 325 mg PO DAILY 05/09/17 Levothyroxine Sodium 75 mcg PO DAILY 05/09/17 Loratadine [Claritin] 10 mg PO DAILY 05/09/17 Atorvastatin [Lipitor] 40 mg PO DAILY 03/13/18 DULoxetine HCL [Cymbalta] 30 mg PO TID 03/13/18 Meclizine [Antivert] 25 mg PO TID 03/13/18 Topiramate [Topamax] 50 mg PO BID 02/13/19 Baclofen [Lioresal] 10 mg PO TID 03/05/19 Fluticasone Nasal [place] [Flonase Nasal [place]] 1 spray EA NOSTRIL DAILY PRN 03/05/19 Pantoprazole Sodium [Protonix] 40 mg PO DAILY 03/05/19 Cholecalciferol [Vitamin D3 (25 Mcg = 1000 Iu)] 5,000 unit PO DAILY 07/24/19 Controlled Substance Measures - Controlled Substance Measures Is patient prescribed a controlled substance at discharge?: No
== END | disposition home or self-care (01) ==
LOC: PNWHC3 10:55
PROVIDERS: ATTEND Anesthesiology
DX: M47.816 Spondylosis without myelopathy or radiculopathy, lumbar region (principal); M47.814 Spondylosis without myelopathy or radiculopathy, thoracic region; E66.01 Morbid (severe) obesity due to excess calories; M79.7 Fibromyalgia; Z87.891 Personal history of nicotine dependence; Z79.899 Other long term (current) drug therapy; Z79.891 Long term (current) use of opiate analgesic; Z79.890 Hormone replacement therapy
CPT/HCPCS: 99211

== ENCOUNTER → 2021-05-09 | Outpatient (CLI) | payer OTHER ==
--- NOTE | 2021-05-13 12:03 | MM ---
Reason for exam: screening (asymptomatic). Last mammogram was performed 2 years and 2 months ago. History: Patient is postmenopausal. Family history of breast cancer in paternal grandmother. Reductions of both breasts, 1999. Lumpectomy of the left breast, 1999. Physical Findings: A clinical breast exam by your physician is recommended on an annual basis and results should be correlated with mammographic findings. MG 3D Screening Mammo W/Cad Bilateral CC and MLO view(s) were taken. Prior study comparison: February 28, 2019, mammogram, performed at [facility]. May 10, 2017, mammogram, performed at [facility]. There are scattered fibroglandular densities. Bilateral nodular breast tissue is stable. No significant changes when compared with prior studies. ASSESSMENT: Benign, BI-RAD 2 RECOMMENDATION: Routine screening mammogram of both breasts in 1 year.
== END | disposition home or self-care (01) ==
LOC: RADMAMWWP 16:16
PROVIDERS: ATTEND Family Medicine
DX: Z12.31 Encounter for screening mammogram for malignant neoplasm of breast (principal); Z80.3 Family history of malignant neoplasm of breast; Z78.0 Asymptomatic menopausal state
CPT/HCPCS: 77063; 77067

== ENCOUNTER 2021-12-04 17:51 | Emergency (ER) | payer OTHER ==
[2021-12-04 18:49] VITALS: BP 125/78; PULSE 96; RESP 20; TEMP 97.5
--- NOTE | 2021-12-04 19:03 | XR ---
EXAMINATION TYPE: XR foot complete RT DATE OF EXAM: 12/04/2021 COMPARISON: None HISTORY: Pain TECHNIQUE: 3 views FINDINGS: There is soft tissue swelling at the forefoot. Metatarsals appear intact. The toes appear intact. I s ee no fracture. IMPRESSION: Soft tissue swelling. No fracture.
--- NOTE | 2021-12-04 20:06 | ED ---
General Adult HPI - General Chief complaint: Extremity Injury, Lower Stated complaint: R foot injury Time Seen by Provider: 12/04/21 19:50 Source: patient Mode of arrival: wheelchair Limitations: no limitations - History of Present Illness Initial comments: Patient is a 56-year-old female with past medical history remarkable for hypertension, fibromyalgia, seizure disorder, tardive disorder presents emergency department after injuring her right foot. Tripped over a small chair that she was using the garden at home. Once the grasper no other injuries. Complaining of abrasion over the dorsal aspect of her right foot. Also pain. Presents for x-ray. Denies any sensory deficits the right lower extremity. He is up-to-date on tetanus. Has no other acute complaint at this time. - Related Data Home Medications Medication Instructions Recorded Confirmed Metoprolol Tartrate [Lopressor] 25 mg PO BID 04/30/14 11/26/19 QUEtiapine FUMARATE [SEROquel] 300 mg PO HS 04/30/14 11/26/19 ALPRAZolam [Xanax] 0.5 mg PO QID PRN 05/01/14 11/26/19 Dicyclomine [Bentyl] 10 mg PO QID PRN 05/01/14 11/26/19 Albuterol Inhaler [Ventolin Hfa 1 puff INHALATION DIRECTED PRN 05/09/17 11/26/19 Inhaler] Ferrous Sulfate [Feosol] 325 mg PO DAILY 05/09/17 11/26/19 Levothyroxine Sodium 75 mcg PO DAILY 05/09/17 11/26/19 Loratadine [Claritin] 10 mg PO DAILY 05/09/17 11/26/19 Atorvastatin [Lipitor] 40 mg PO DAILY 03/13/18 11/26/19 DULoxetine HCL [Cymbalta] 30 mg PO TID 03/13/18 11/26/19 Meclizine [Antivert] 25 mg PO TID 03/13/18 11/26/19 Topiramate [Topamax] 50 mg PO BID 02/13/19 11/26/19 Baclofen [Lioresal] 10 mg PO TID 03/05/19 11/26/19 Fluticasone Nasal [place] [Flonase 1 spray EA NOSTRIL DAILY PRN 03/05/19 11/26/19 Nasal [place]] Pantoprazole Sodium [Protonix] 40 mg PO DAILY 03/05/19 11/26/19 Cholecalciferol [Vitamin D3 (25 5,000 unit PO DAILY 07/24/19 11/26/19 Mcg = 1000 Iu)] Allergies Allergy/AdvReac Type Severity Reaction Status Date / Time bupropion HCl Allergy Rash/Hives/ Verified 12/04/21 18:49 [From Wellbutrin] SOB cephalexin monohydrate Allergy Rash/Hives? Verified 12/04/21 18:49 [From Keflex] SOB pseudoephedrine HCl Allergy Rash/Hives/ Verified 12/04/21 18:49 [From Sudafed] SOB Review of Systems ROS Statement: Those systems with pertinent positive or pertinent negative responses have been documented in the HPI. Review of Systems: CONST: Denies fever EYES: Denies blurry vision ENT: Denies nasal congestion C/V: Denies Chest pain RESP: Denies shortness of breath GI: Denies abdominal pain : Denies dysuria SKIN: Endorses right foot abrasion MSK: Endorse right foot pain NEURO: Denies headache ROS Other: All systems not noted in ROS Statement are negative. Past Medical History Past Medical History: Fibromyalgia, Hyperlipidemia, Hypertension, Pneumonia, Seizure Disorder, Sleep Apnea/CPAP/BIPAP, Thyroid Disorder Additional Past Medical History / Comment(s): LAST SEIZURE "YEARS AGO", UNABLE TO WEAR CPAP MACHINE, FX TAILBONE. History of Any Multi-Drug Resistant Organisms: None Reported Past Surgical History: Back Surgery, Breast Surgery, Section, Cholecystectomy, Joint Replacement, Orthopedic Surgery, Tubal Ligation Additional Past Surgical History / Comment(s): SPINAL FUSION, LEFT KNEE REPLACEMENT, LEFT ANKLE ORIF WITH PINS, SX FOR DEV SEPTUM, CHIN IMPLANT, PAIN CLINIC PROCEDURES, COLONOSCOPY. Past Anesthesia/Blood Transfusion Reactions: Previous Problems w/ Anesthesia Additional Past Anesthesia/Blood Transfusion Reaction / Comment(s): AFTER SPINAL FUSION HAD DIFFICULTY BREATHING. Past Psychological History: Bipolar, PTSD Smoking Status: Never smoker Past Alcohol Use History: Rare Past Drug Use History: None Reported - Past Family History Mother Family Medical History: No Reported History Sister(s) Family Medical History: Deep Vein Thrombosis (DVT) General Exam - General Exam Comments Initial Comments: General: Appears in no acute distress. HEAD: Normal with no signs of head trauma. EYES: EOMI ENT: Hearing grossly intact RESPIRATORY: No respiratory distress C/V: Peripheral pulses 2+ and intact throughout. ABD: Nondistended abdomen. EXT: Swelling over the dorsal aspect of the right foot. No obvious deformity. SKIN: Superficial abrasion located to the right foot. Not actively bleeding. NEURO: Alert and oriented 4. No focal sensory strength deficits. Able to ambulate. Limitations: no limitations Course Vital Signs 12/04/21 18:47 Temperature 97.5 F L Pulse Rate 96 Respiratory 20 Rate Blood Pressure 125/78 O2 Sat by Pulse 99 Oximetry Medical Decision Making - Medical Decision Making Based on patient's presentation and physical exam, I do believe that she experienced a foot abrasion as well as possible foot injury. X-ray was already obtained and revealed no signs of fracture. There is soft tissue swelling. After the patient on the findings. Believe it is safer to be discharged home at this time. Does not require tetanus booster. She has home [id number] analgesia for pain. Shortly has crutches as well as a walker at home if she needs them. She was in agreement with this plan. I instructed the patient to follow up with their PCP in the next 1-3 days. I explained that the patient should return to the emergency department if they experience any worsening symptoms. Strict return precautions were discussed with the patient. The patient expressed understanding of these instructions. I answered all questions that the patient had. The patient was discharged home in good condition with their prescriptions and follow up information. Disposition Clinical Impression: Right foot injury, Abrasion Disposition: HOME SELF-CARE Condition: Good Instructions (If sedation given, give patient instructions): Abrasion (ED) Is patient prescribed a controlled substance at d/c from ED?: No Referrals: Marquise Salas MD [Primary Care Provider] - 1-2 days Time of Disposition: 20:00
[2021-12-04] MEDS ORDERED: DIPH,PERTUS(ACELL)TETVAC-LF 0.5 ML VIAL IM ONE (20:10)
== END 2021-12-04 20:18 | disposition home or self-care (01) ==
LOC: EC 17:51
DX: S90.811A Abrasion, right foot, initial encounter (principal); I10 Essential (primary) hypertension; E78.5 Hyperlipidemia, unspecified; E07.9 Disorder of thyroid, unspecified; M79.7 Fibromyalgia; Z88.8 Allergy status to other drugs, medicaments and biological substances; Z23 Encounter for immunization; Z88.1 Allergy status to other antibiotic agents; Z79.899 Other long term (current) drug therapy; Z79.890 Hormone replacement therapy; W22.8XXA Striking against or struck by other objects, initial encounter
CPT/HCPCS: 90471; 90715; 99283

== ENCOUNTER → 2022-03-31 | Outpatient (CLI) | payer OTHER ==
--- NOTE | 2022-03-31 16:32 | NM ---
EXAMINATION TYPE: NM WBC limited DATE OF EXAM: 03/31/2022 COMPARISON: NONE CLINICAL INDICATION:Female, 56 years old with history of S91.311S; TECHNIQUE: Following administration of 12 mCi Tc99m Ceretec. Images obtained 3 hours post injection . Anterior, posterior and lateral imaging of the feet. FINDINGS: Normal physiological tracer activity is noted within the feet. No abnormal uptake identified. IMPRESSION: Normal white blood cell scan. No evidence for abnormal tracer activity.
== END | disposition home or self-care (01) ==
LOC: RADNMMAIN 07:00
PROVIDERS: ATTEND Family Medicine
DX: S91.311S Laceration without foreign body, right foot, sequela (principal)
CPT/HCPCS: 78300; A9569

== ENCOUNTER → 2024-09-18 | Outpatient (CLI) | payer OTHER ==
--- NOTE | 2024-09-19 23:06 | CT ---
EXAMINATION TYPE: CT facial bones wo con DATE OF EXAM: 09/18/2024 5:13 PM COMPARISON: None. CLINICAL INDICATION: Female, 59 years old with history of M27.40 UNSPECIFIED CYST OF JAW, UNSPECIFIED CYST OF JAW, PT UNCERTAIN WHAT SIDE, CYST WAS FOUND ON XR AT DENTIST.HX OF CHIN IMPLANT TECHNIQUE: The paranasal sinuses are examined in the axial plane at 2 mm thick sections. Reconstruct ed images in the coronal plane were obtained. Contrast used: mL of , (none if empty) Oral contrast used: (none if empty) CT DLP: 696 mGycm, Automated exposure control for dose reduction was used. FINDINGS: There is dental amalgam scatter artifact. Temporomandibular junctions are normal. The mandible appears intact. There is a smooth bordered cyst at the anterior apex of the mandible. This is estimated to measure 2.8 x 1.7 x 1.1 cm. No adjacent so ft tissue abnormality identified. There is a report of a chin implant which may account for the low d ensity area below the subcutaneous tissues at the chin apex. No cortical disruption of the mandibular apex cyst is evident. The maxillary sinuses are clear. The ethmoid air cells are clear. The sphenoid sinuses are clear. The frontal sinuses are clear. Mastoid air cells are clear. The septum is evaluated. There is septal deviation to the left. The ostiomeatal units are patent. Maxillary spine is intact. Zygomatic arches are intact. Greater wings of the sphenoid are normal. Max illa appears normal. Couple small submental lymph nodes appear to be present. Submandibular glands are normal. Parotid gla nds as visualized are normal. Torus tubarius fossa of Rosenmuller and lozenge maker spaces are normal. IMPRESSION: 1. There appears to be a 2.8 x 1.7 x 1.1 cm periodontal smooth bordered cyst at the apex of the delores ible. [facility], , 09/19/2024 11:03 PM
== END | disposition home or self-care (01) ==
LOC: RADCTMAIN 16:17
PROVIDERS: ATTEND Nurse Practitioner Adult Health
DX: M27.40 Unspecified cyst of jaw (principal); J34.2 Deviated nasal septum
CPT/HCPCS: 70486